=== PATIENT | male | born 1965 | race Caucasian/White ===

== ENCOUNTER 2018-07-01 13:00 | Emergency (ER) | payer OTHER ==
[~2018-07-01] VITALS: Ht 180.3 cm; Wt 112.7 kg
[2018-07-01 13:04] VITALS: Ht 180.3 cm; Wt 112.7 kg
[2018-07-01] MEDS ORDERED: IBUPROFEN600 MG (13:05)
[2018-07-01 13:50] LABS: APPEARANCE CLEAR (CLEAR); COLOR STRAW (YELLOW); NITRITE NEGATIVE (NEGATIVE); PROTEIN TRACE mg/dL (NEGATIVE)
[2018-07-01 13:51] LABS: BILIRUBIN NEGATIVE (NEGATIVE); GLUCOSE 1000 mg/dL (NEGATIVE); KETONE NEGATIVE (NEGATIVE); UROBILINOGEN NORMAL (NORMAL)
[2018-07-01 13:54] LABS: BASOPHILS 0.3 % (0-2); HEMATOCRIT 45.2 % (42.0-54.0); HEMOGLOBIN 15.6 g/dL (13.5-17.5); IMMATURE GRANULOCYTES 0.4 % (0-5); LYMPHOCYTES 20.1 % (15-50); MCH 30.2 pg (26.0-34.0); MCHC 34.5 g/dL (31.0-37.0); MCV 87.6 fL (80.0-100.0); MEAN PLATELET VOLUME 10.3 fL (7.4-10.4); MONOCYTES 6.4 % (2-11); NEUTROPHILS 70.8 % (40-80); PLATELET COUNT 235 10x3/uL (130-400); RBC 5.16 10x6/uL (4.20-6.10); RDW 12.7 % (11.5-14.5); WBC 12.1 10x3/uL (4.8-10.8)
[2018-07-01 13:54] LABS: BACTERIA FEW /hpf (NONE SEEN); EPITHELIAL CELLS RARE /hpf (0-5); RED CELLS - URINE 0-5 /hpf (0-5); WHITE CELLS - URINE 0-5 /hpf (0-5)
[2018-07-01 14:03] LABS: KETONE - SERUM NEGATIVE (NEGATIVE)
[2018-07-01 14:14] LABS: ALBUMIN 3.2 g/dL (3.4-5.0); ALKALINE PHOSPHATASE 88 U/L (46-116); ALT (SGPT) 62 U/L (10-68); BILIRUBIN - TOTAL 0.42 mg/dL (0.2-1.3); CALC OSMOLALITY 281 mosm/kg (275-300); CALCIUM 9.9 mg/dL (8.5-10.1); CARBON DIOXIDE 24.6 mmol/L (21.0-32.0); CHLORIDE - SERUM 97 mmol/L (98-107); GLUCOSE 393 mg/dL (74-106); POTASSIUM - SERUM 4.2 mmol/L (3.5-5.1); PROTEIN - SERUM 8.6 g/dL (6.4-8.2); SODIUM 132 mmol/L (136-145); UREA NITROGEN 15 mg/dL (7-18); eGFR NON AFRICAN AMERICAN 84 mL/min (90-120)
[2018-07-01] MEDS ORDERED: LANTUS SOL100 UNIT/1 SC (17:51)
[2018-07-01] MEDS ORDERED: METFORMIN HCL500 M1 PO (17:51)
[2018-07-01] MEDS ORDERED: GYNE-LOTRIMIN-745 GM VG (17:54)
[2018-07-01 18:21] VITALS: BP 115/87
== END 2018-07-01 18:24 | disposition home or self-care (01) ==
LOC: D.ER 13:00
PROVIDERS: Emergency Medicine
DX: E11.65 Type 2 diabetes mellitus with hyperglycemia (principal); B37.0 Candidal stomatitis